=== PATIENT | female | born 1955 | race Two or more races ===

== ENCOUNTER 2024-10-07 13:40 | Inpatient (IN) | payer OTHER ==
[~2024-10-07] VITALS: Ht 162.6 cm; Wt 68.0 kg
--- NOTE | 2024-10-07 15:21 | NUR ---
PACIENTE REFERIDO POR LA DRA. PIETER MATTA POR SYMPTOMATIC ANEMIA. PACIENTE REFIERE QUE [place] HGB GIBSON GONSALO DISMINUYENDO Y LLEVA SINTIENDO SE DEBIL
[2024-10-07] MEDS ORDERED: VALSARTAN320 MG PO (15:22)
[2024-10-07] MEDS ORDERED: HYDRALAZINE HCL25 MG PO (15:22)
[2024-10-07] MEDS ORDERED: LETROZOLE2.5 MG PO (15:23)
[2024-10-07] MEDS ORDERED: ROSUVASTATIN CA10 MG PO (15:23)
[2024-10-07] MEDS ORDERED: CATAPRES0.3 MG PO (15:23)
[2024-10-07] MEDS ORDERED: ECOTRIN81 MG PO (15:23)
--- NOTE | 2024-10-07 15:32 | NUR ---
PACIRENTE SE ENCUENTRA CON TAQUICARDIA SE REALIZA EKG Y SE DOCUMETAN EN SISTEMA
--- NOTE | 2024-10-07 16:57 | NUR ---
SE ORIENTA A PACIENTE SOBRE [place] MEDICO. SE COLECTAN MUESTRAS DE FR[place] Y SE CANALIZA A PACIENTE BAJO MEDIDAS ASEPTICAS. PEND REALIZAR X-RAY.
[2024-10-07 17:28] LABS: HEMATOCRIT 27.7 % (36.0-45.00); MEAN CELL VOLUME 74.3 fL (80.00-100.00); MEAN CORPUSCULAR HEMOGLOBIN 23.3 pg (27.00-32.0); MEAN CORPUSCULAR HGB CONC 31.3 g/dl (32.0-36.0); PLATELET COUNT 190 K/uL (150-450); RED BLOOD COUNT 3.73 M/uL (4.00-6.00); RED CELL DISTRIBUTION WIDTH 18.4 % (11.5-14.5)
[2024-10-07 17:29] LABS: HEMOGLOBIN 8.7 g/dL (12.0-15.00)
[2024-10-07 17:45] LABS: CALCIUM 9.7 mg/dL (8.5-10.1); CREATININE SERUM 0.8 mg/dL (0.55-1.02); GFR 70.91; POTASSIUM 3.95 mEq/L (3.5-5.1)
[2024-10-07 18:35] LABS: URINE APPEARANCE Clear; URINE BILIRRUBIN Negative (NEGATIVE); URINE BLOOD Negative; URINE COLOR Yellow; URINE GLUCOSE Negative (NEGATIVE); URINE KETONE Negative (NEGATIVE); URINE LEUKOCYTE Moderate; URINE NITRATE Positive; URINE PROTEIN Negative (NEGATIVE); URINE UROBILINOGEN 0.2 E.U./dl
[2024-10-07 18:39] LABS: URINE BACTERIA 3148.9 uL (0.0-1933); URINE EPITHELIAL CELLS 2.8 uL (0.0-38.8); URINE RBC 6.3 uL (0.0-20.8); URINE WBC 530.6 uL (0.0-23.2)
[2024-10-07 18:47] LABS: URINE CAST 0.29 uL (0.0-1.40)
[2024-10-07] MEDS ORDERED: PANTOPRAZOLE SODIUM 40 MG/VIAL VIAL IV SCH (20:21)
[2024-10-07] MEDS ORDERED: CEFTRIAXONE SODIUM 2,000 MG in 0.9 % SODIUM CHLORIDE 100 ML IV SCH (20:21)
[2024-10-07] MEDS ORDERED: 0.9 % SODIUM CHLORIDE 1,000 ML IV SCH (20:30)
[2024-10-07] MEDS ORDERED: FUROsemide 20 MG/2 ML VIAL IV SCH (20:30)
[2024-10-07] MEDS ORDERED: ACETAMINOPHEN 500 MG GEL..CAP PO PRN (20:30)
[2024-10-07] MEDS ORDERED: 0.9 % SODIUM CHLORIDE 500 ML IV ONE (20:30)
[2024-10-07 23:00] VITALS: BP 107/60; O2SAT 97
[2024-10-08] MEDS ORDERED: CEFTRIAXONE SODIUM 2,000 MG VIAL ONE ×2 (01:01→07:39)
[2024-10-08 02:32] LABS: INR 1.22; PARTIAL THROMBOPLASTIN TIME 31.3 SECONDS (22.0-34.0); PROTHROMBIN TIME 13.1 SECONDS (9.0-11.5)
[2024-10-08 07:45] LABS: CHOL HDL RATIO 3.4 (0-5.0); TSH 1.61 uIU/mL (0.358-3.74)
[2024-10-08 08:34] VITALS: BP 96/55; O2SAT 100
[2024-10-08] MEDS ORDERED: hydrALAZINE HCL 10 MG TABLET PO SCH (09:00)
[2024-10-08] MEDS ORDERED: LOSARTAN POTASSIUM 50 MG TABLET PO SCH (09:00)
[2024-10-08] MEDS ORDERED: cloNIDine HCL 0.2 MG TABLET PO SCH (09:00)
[2024-10-08 09:31] VITALS: BP 113/53
[2024-10-08 17:04] VITALS: BP 136/60; O2SAT 99
[2024-10-09 01:00] VITALS: BP 119/61; O2SAT 96
[2024-10-09 08:49] VITALS: BP 107/62
[2024-10-09 12:11] LABS: HEMATOCRIT 36.3 % (36.0-45.00); HEMOGLOBIN 11.7 g/dL (12.0-15.00); MEAN CELL VOLUME 76.2 fL (80.00-100.00); MEAN CORPUSCULAR HEMOGLOBIN 24.7 pg (27.00-32.0); MEAN CORPUSCULAR HGB CONC 32.4 g/dl (32.0-36.0); PLATELET COUNT 173 K/uL (150-450); RED BLOOD COUNT 4.76 M/uL (4.00-6.00); RED CELL DISTRIBUTION WIDTH 17.6 % (11.5-14.5)
[2024-10-09 12:52] LABS: ALBUMIN 3.1 gm/dL (3.4-5.0); BILIRUBIN TOTAL 0.57 mg/dL (0.3-1.2); CREATININE SERUM 0.95 mg/dL (0.55-1.02); GFR 58.15; GLOBULINA 4.3 G/DL (2.4-3.5); MAGNESIUM 1.6 mg/dL (1.8-2.4); POTASSIUM 3.55 mEq/L (3.5-5.1); TOTAL PROTEIN 7.4 gm/dL (6.4-8.2)
[2024-10-09 12:56] LABS: C-REACTIVE PROTEIN 6.66 MG/DL (0.00-0.29)
[2024-10-09] MEDS ORDERED: MAGNESIUM SULFATE 1,000 MG in 0.9 % SODIUM CHLORIDE 50 ML IV NR (14:00)
[2024-10-09 15:36] LABS: ob POSITIVE (NEGATIVE)
[2024-10-09] MEDS ORDERED: POLYETHYLENE GLYCOL 3350 238 GM POWDER PO NR (18:00)
[2024-10-09 18:09] VITALS: BP 140/65
[2024-10-09] MEDS ORDERED: PEG3350/SOD SULF,BICARB,CL/KCL 4,000 ML GALLON PO ONE (19:00)
[2024-10-09] MEDS ORDERED: BISACODYL 5 MG TABLET.EC PO NR (20:00)
[2024-10-09] MEDS ORDERED: ALPRAzolam 1 MG TABLET PO SCH (21:00)
[2024-10-10 02:35] VITALS: BP 165/86; O2SAT 95
[2024-10-10] MEDS ORDERED: NA PHOS,M-B/NA PHOS,DI-BA 1 BOTTLE ENEMA RC ONE (06:00)
[2024-10-10 11:04] VITALS: BP 107/64
[2024-10-10] MEDS ORDERED: DIPHENHYDRAMINE HCL 50 MG/ML VIAL 1ML IV NR (18:30)
[2024-10-10] MEDS ORDERED: MIDAZOLAM HCL 2 MG/2 ML VIAL IV ONE (18:30)
[2024-10-10] MEDS ORDERED: fentaNYL CITRATE 50 MCG/ML AMPUL IV PUSH ONE (18:30)
[2024-10-10 18:50] VITALS: BP 149/67
[2024-10-11 01:25] VITALS: BP 160/79; O2SAT 98
[2024-10-11 08:24] VITALS: BP 185/80; O2SAT 97
[2024-10-11 13:09] LABS: ALBUMIN 3.4 gm/dL (3.4-5.0); BILIRUBIN TOTAL 0.52 mg/dL (0.3-1.2); CALCIUM 9.3 mg/dL (8.5-10.1); CREATININE SERUM 0.82 mg/dL (0.55-1.02); GFR 68.92; GLOBULINA 3.8 G/DL (2.4-3.5); MAGNESIUM 1.7 mg/dL (1.8-2.4); PHOSPHOROUS 4.3 mg/dL (2.5-4.9); POTASSIUM 3.9 mEq/L (3.5-5.1); TOTAL PROTEIN 7.2 gm/dL (6.4-8.2)
[2024-10-11 13:20] LABS: C-REACTIVE PROTEIN 5.74 MG/DL (0.00-0.29)
[2024-10-11 14:30] LABS: HEMATOCRIT 41.5 % (36.0-45.00); HEMOGLOBIN 13.4 g/dL (12.0-15.00); MEAN CELL VOLUME 77.4 fL (80.00-100.00); MEAN CORPUSCULAR HEMOGLOBIN 24.9 pg (27.00-32.0); MEAN CORPUSCULAR HGB CONC 32.2 g/dl (32.0-36.0); PLATELET COUNT 233 K/uL (150-450); RED BLOOD COUNT 5.36 M/uL (4.00-6.00); RED CELL DISTRIBUTION WIDTH 17.9 % (11.5-14.5)
[2024-10-11 17:51] VITALS: BP 150/90
[2024-10-11] MEDS ORDERED: ONDANSETRON HCL 2 MG/ML VIAL IV PRN (18:00)
[2024-10-11] MEDS ORDERED: PROMETHAZINE HCL 25 MG/ML AMPUL IM PRN ×2 (19:15→20:34)
[2024-10-11] MEDS ORDERED: ENALAPRILAT DIHYDRATE 1.25 MG/ML VIAL IV PRN ×2 (19:15→20:34)
[2024-10-11] MEDS ORDERED: PROMETHAZINE HCL 25 MG/ML AMPUL IM ONE (20:45)
[2024-10-11] MEDS ORDERED: ENALAPRILAT DIHYDRATE 1.25 MG/ML VIAL IV ONE (20:45)
[2024-10-11] MEDS ORDERED: PANTOPRAZOLE SODIUM 80 MG in 0.9 % SODIUM CHLORIDE 100 ML IV SCH (23:00)
[2024-10-11] MEDS ORDERED: NITROGLYCERIN IN 5 % DEXTROSE 50 MG/250 ML BOTTLE IV ONE (23:00)
[2024-10-11] MEDS ORDERED: SODIUM CHLORIDE 0.45 % 1,000 ML IV SCH (23:15)
[2024-10-11] MEDS ORDERED: NITROGLYCERIN IN 5 % DEXTROSE 250 ML IV SCH (23:15)
[2024-10-12 01:52] VITALS: BP 138/85; O2SAT 96
[2024-10-12 07:10] LABS: ALBUMIN 3.3 gm/dL (3.4-5.0); CALCIUM 9.3 mg/dL (8.5-10.1); CREATININE SERUM 1.91 mg/dL (0.55-1.02); GFR 25.97; MAGNESIUM 1.7 mg/dL (1.8-2.4); PHOSPHOROUS 4.7 mg/dL (2.5-4.9); POTASSIUM 3.48 mEq/L (3.5-5.1)
[2024-10-12 07:38] LABS: HEMATOCRIT 45.8 % (36.0-45.00); HEMOGLOBIN 14.8 g/dL (12.0-15.00); MEAN CELL VOLUME 77.2 fL (80.00-100.00); MEAN CORPUSCULAR HGB CONC 32.3 g/dl (32.0-36.0); PLATELET COUNT 278 K/uL (150-450); RED BLOOD COUNT 5.93 M/uL (4.00-6.00); RED CELL DISTRIBUTION WIDTH 18.3 % (11.5-14.5)
[2024-10-12 08:27] VITALS: BP 164/94; O2SAT 95
[2024-10-12 17:55] VITALS: BP 160/90
[2024-10-13 01:46] VITALS: BP 142/82; O2SAT 95
[2024-10-13] MEDS ORDERED: hydrALAZINE HCL 20 MG VIAL IV PRN (06:45)
[2024-10-13] MEDS ORDERED: hydrALAZINE HCL 10 MG TABLET PO SCH (09:00)
[2024-10-13 13:00] VITALS: BP 133/78
[2024-10-13] MEDS ORDERED: hydrALAZINE HCL 50 MG TABLET PO SCH (13:10)
[2024-10-13 13:55] LABS: HEMATOCRIT 37.8 % (36.0-45.00); HEMOGLOBIN 12.3 g/dL (12.0-15.00); MEAN CELL VOLUME 75.2 fL (80.00-100.00); MEAN CORPUSCULAR HEMOGLOBIN 24.5 pg (27.00-32.0); MEAN CORPUSCULAR HGB CONC 32.6 g/dl (32.0-36.0); PLATELET COUNT 198 K/uL (150-450); RED BLOOD COUNT 5.03 M/uL (4.00-6.00); RED CELL DISTRIBUTION WIDTH 18.8 % (11.5-14.5)
[2024-10-13 14:39] LABS: BILIRUBIN TOTAL 0.5 mg/dL (0.3-1.2); CALCIUM 8.8 mg/dL (8.5-10.1); CREATININE SERUM 1.03 mg/dL (0.55-1.02); GFR 52.97; GLOBULINA 3.3 G/DL (2.4-3.5); POTASSIUM 3.41 mEq/L (3.5-5.1); TOTAL PROTEIN 6.3 gm/dL (6.4-8.2)
[2024-10-13] MEDS ORDERED: PIPERACILLIN/TAZOBACTAM SODIUM 3.375 GM in DEXTROSE 5 % IN WATER 100 ML IV SCH (18:00)
[2024-10-13 18:21] VITALS: BP 140/70
[2024-10-13 20:56] LABS: CKMB 4.5 NG/ML (0.5-3.6)
[2024-10-13 23:17] LABS: PH,URINE 5.5 (5.0-8.0); URINE APPEARANCE Cloudy; URINE BILIRRUBIN Negative (NEGATIVE); URINE BLOOD Negative; URINE COLOR Yellow; URINE GLUCOSE Negative (NEGATIVE); URINE KETONE 15 (NEGATIVE); URINE LEUKOCYTE Large; URINE NITRATE Negative; URINE PROTEIN Trace (NEGATIVE); URINE UROBILINOGEN 0.2 E.U./dl
[2024-10-13 23:20] LABS: URINE BACTERIA 62.4 uL (0.0-1933); URINE CAST 9.72 uL (0.0-1.40); URINE EPITHELIAL CELLS 72.5 uL (0.0-38.8); URINE RBC 3.3 uL (0.0-20.8); URINE WBC 333.7 uL (0.0-23.2)
[2024-10-14 01:15] VITALS: BP 133/87
[2024-10-14 06:14] LABS: HEMATOCRIT 36.3 % (36.0-45.00); HEMOGLOBIN 11.9 g/dL (12.0-15.00); MEAN CELL VOLUME 76.2 fL (80.00-100.00); MEAN CORPUSCULAR HEMOGLOBIN 24.9 pg (27.00-32.0); MEAN CORPUSCULAR HGB CONC 32.7 g/dl (32.0-36.0); PLATELET COUNT 212 K/uL (150-450); RED BLOOD COUNT 4.77 M/uL (4.00-6.00); RED CELL DISTRIBUTION WIDTH 18.5 % (11.5-14.5)
[2024-10-14 06:39] LABS: GFR 54.81; MAGNESIUM 1.8 mg/dL (1.8-2.4); POTASSIUM 3.37 mEq/L (3.5-5.1); TOTAL PROTEIN 6.2 gm/dL (6.4-8.2)
[2024-10-14 06:55] LABS: BILIRUBIN TOTAL 0.63 mg/dL (0.3-1.2); C-REACTIVE PROTEIN 1.7 MG/DL (0.00-0.29); CALCIUM 8.4 mg/dL (8.5-10.1); GLOBULINA 3.2 G/DL (2.4-3.5); PHOSPHOROUS 2.4 mg/dL (2.5-4.9)
[2024-10-14 09:00] VITALS: BP 126/66
[2024-10-14 10:22] LABS: PROCALCITONIN 0.146 ng/ml (0.020-0.080)
[2024-10-14 11:00] LABS: CORTISOL 11.07 ug/dl
[2024-10-14] MEDS ORDERED: POTASSIUM PHOS,M-BASIC-D-BASIC 15 MM in 0.9 % SODIUM CHLORIDE 250 ML IV NR (16:00)
[2024-10-14 17:00] VITALS: BP 157/72
[2024-10-14] MEDS ORDERED: SOD FERRIC GLUC COMPLX/SUCROSE 62.5 MG in 0.9 % SODIUM CHLORIDE 50 ML IV NR (18:00)
[2024-10-14 20:23] LABS: FERRITIN 25.8 NG/ML (8-252)
[2024-10-14] MEDS ORDERED: POTASSIUM BICARBONATE/CIT AC 25 MEQ TABLET.EFF PO SCH (21:00)
[2024-10-15 00:49] VITALS: BP 141/59
[2024-10-15 09:02] VITALS: BP 157/80
[2024-10-15 09:56] LABS: FOLIC ACID 13.58 ng/ml (4.78-20)
[2024-10-15] MEDS ORDERED: SOD FERRIC GLUC COMPLX/SUCROSE 62.5 MG in 0.9 % SODIUM CHLORIDE 50 ML IV SCH (17:00)
[2024-10-15 18:00] VITALS: BP 129/62
[2024-10-16 01:25] VITALS: BP 133/75
[2024-10-16 07:17] LABS: HEMATOCRIT 30.5 % (36.0-45.00); MEAN CELL VOLUME 76.5 fL (80.00-100.00); MEAN CORPUSCULAR HGB CONC 32.5 g/dl (32.0-36.0); RED BLOOD COUNT 3.99 M/uL (4.00-6.00); RED CELL DISTRIBUTION WIDTH 18.5 % (11.5-14.5)
[2024-10-16 07:40] LABS: MEAN CORPUSCULAR HEMOGLOBIN 24.8 pg (27.00-32.0)
[2024-10-16 07:45] LABS: HEMOGLOBIN 9.9 g/dL (12.0-15.00); PLATELET COUNT 121 K/uL (150-450)
[2024-10-16 08:05] LABS: ALBUMIN 2.6 gm/dL (3.4-5.0); BILIRUBIN TOTAL 0.31 mg/dL (0.3-1.2); CALCIUM 8.5 mg/dL (8.5-10.1); CREATININE SERUM 0.88 mg/dL (0.55-1.02); GFR 63.52; GLOBULINA 2.7 G/DL (2.4-3.5); MAGNESIUM 1.7 mg/dL (1.8-2.4); PHOSPHOROUS 3.7 mg/dL (2.5-4.9); TOTAL PROTEIN 5.3 gm/dL (6.4-8.2)
[2024-10-16 08:16] VITALS: BP 170/73
[2024-10-16 08:27] LABS: C-REACTIVE PROTEIN 2.06 MG/DL (0.00-0.29); POTASSIUM 2.88 mEq/L (3.5-5.1)
[2024-10-16] MEDS ORDERED: POTASSIUM CHLORIDE 20MEQ/100ML H2O PB IV ONE ×2 (08:37→09:00)
[2024-10-16 15:05] LABS: MANUAL PLATELET COUNT 248
[2024-10-16 15:07] LABS: PLATELET ESTIMATE NORMAL (NORMAL)
[2024-10-16] MEDS ORDERED: DIPHENHYDRAMINE HCL 50 MG/ML VIAL 1ML IV ONE ×2 (16:00)
[2024-10-16] MEDS ORDERED: fentaNYL CITRATE 50 MCG/ML AMPUL IV PUSH ONE (16:00)
[2024-10-16] MEDS ORDERED: MIDAZOLAM HCL 2 MG/2 ML VIAL IV ONE (16:00)
[2024-10-16] MEDS ORDERED: POTASSIUM BICARBONATE/CIT AC 25 MEQ TABLET.EFF PO SCH (17:00)
[2024-10-16] MEDS ORDERED: SPIRONOLACTONE 25 MG TABLET PO SCH (17:00)
[2024-10-16] MEDS ORDERED: MAGNESIUM SULFATE IN WATER 2 GM/50 ML PIGGYBAG IV NR (17:00)
[2024-10-16 20:42] VITALS: BP 142/65
[2024-10-16] MEDS ORDERED: ALPRAzolam 1 MG TABLET PO SCH (22:15)
[2024-10-17 01:44] VITALS: BP 194/74
[2024-10-17 06:27] LABS: HEMATOCRIT 30.6 % (36.0-45.00); HEMOGLOBIN 10.2 g/dL (12.0-15.00); MEAN CELL VOLUME 75.5 fL (80.00-100.00); MEAN CORPUSCULAR HEMOGLOBIN 25.1 pg (27.00-32.0); MEAN CORPUSCULAR HGB CONC 33.2 g/dl (32.0-36.0); PLATELET COUNT 133 K/uL (150-450); RED BLOOD COUNT 4.05 M/uL (4.00-6.00); RED CELL DISTRIBUTION WIDTH 18.9 % (11.5-14.5)
[2024-10-17 07:25] LABS: ALBUMIN 2.8 gm/dL (3.4-5.0); CALCIUM 8.6 mg/dL (8.5-10.1); CREATININE SERUM 0.76 mg/dL (0.55-1.02); GFR 75.23; MAGNESIUM 2.1 mg/dL (1.8-2.4); PHOSPHOROUS 2.8 mg/dL (2.5-4.9); POTASSIUM 3.03 mEq/L (3.5-5.1)
[2024-10-17 08:23] VITALS: BP 170/75
[2024-10-17 16:11] VITALS: BP 144/63
[2024-10-17] MEDS ORDERED: POTASSIUM BICARBONATE/CIT AC 25 MEQ TABLET.EFF PO SCH (17:31)
[2024-10-18 02:53] VITALS: BP 126/78; O2SAT 98
[2024-10-18 07:46] LABS: ALBUMIN 2.5 gm/dL (3.4-5.0); CALCIUM 8.6 mg/dL (8.5-10.1); CREATININE SERUM 1.01 mg/dL (0.55-1.02); GFR 54.19; MAGNESIUM 1.8 mg/dL (1.8-2.4); PHOSPHOROUS 2.9 mg/dL (2.5-4.9); POTASSIUM 3.77 mEq/L (3.5-5.1)
[2024-10-18 09:10] VITALS: BP 169/76; O2SAT 97
[2024-10-18 13:22] LABS: PH,URINE 7.5 (5.0-8.0); URINE APPEARANCE Clear; URINE BILIRRUBIN Negative (NEGATIVE); URINE BLOOD Negative; URINE COLOR Yellow; URINE GLUCOSE Negative (NEGATIVE); URINE KETONE Negative (NEGATIVE); URINE LEUKOCYTE Small; URINE NITRATE Negative; URINE PROTEIN Negative (NEGATIVE); URINE UROBILINOGEN 0.2 E.U./dl
[2024-10-18 13:25] LABS: URINE BACTERIA 7.3 uL (0.0-1933); URINE EPITHELIAL CELLS 2.3 uL (0.0-38.8); URINE RBC 48.4 uL (0.0-20.8); URINE WBC 31.8 uL (0.0-23.2)
[2024-10-18 14:40] LABS: URINE CRYSTALS FEW /HPF
[2024-10-18 14:41] LABS: URINE YEAST FEW /hpf
[2024-10-18 16:00] VITALS: BP 117/59; O2SAT 98
== END 2024-10-18 18:47 | disposition home or self-care (01) | DRG 690 ==
LOC: ER 13:42 → SEC-K 21:37 → MEDI 21:37
PROVIDERS: Emergency Medicine; General Practice; Internal Medicine; Internal Medicine Hematology & Oncology; Internal Medicine Infectious Disease; Internal Medicine Nephrology; ADMIT Internal Medicine; ATTEND Internal Medicine
PROC: 30243N1 Transfusion of Nonautologous Red Blood Cells into Central Vein, Percutaneous Approach (ICD-10-PCS; 2024-10-08)
PROC: 0D9H8ZX Drainage of Cecum, Via Natural or Artificial Opening Endoscopic, Diagnostic (ICD-10-PCS; principal; 2024-10-10)
PROC: B020ZZZ Computerized Tomography (CT Scan) of Brain (ICD-10-PCS; 2024-10-13)
PROC: B24BYZZ Ultrasonography of Heart with Aorta using Other Contrast (ICD-10-PCS; 2024-10-13)
PROC: 02HV33Z Insertion of Infusion Device into Superior Vena Cava, Percutaneous Approach (ICD-10-PCS; 2024-10-13)
PROC: 4A12X4Z Monitoring of Cardiac Electrical Activity, External Approach (ICD-10-PCS; 2024-10-13)
PROC: BF37ZZZ Magnetic Resonance Imaging (MRI) of Pancreas (ICD-10-PCS; 2024-10-14)
PROC: 0DJ08ZZ Inspection of Upper Intestinal Tract, Via Natural or Artificial Opening Endoscopic (ICD-10-PCS; 2024-10-16)
DX: N39.0 Urinary tract infection, site not specified (principal); R65.10 Systemic inflammatory response syndrome (SIRS) of non-infectious origin without acute organ dysfunction; K57.92 Diverticulitis of intestine, part unspecified, without perforation or abscess without bleeding; D64.9 Anemia, unspecified; I10 Essential (primary) hypertension; E78.5 Hyperlipidemia, unspecified; D50.9 Iron deficiency anemia, unspecified